=== PATIENT | male | born 1990 | race Caucasian/White ===

== ENCOUNTER 2017-02-09 09:47 | Inpatient (IN) | payer SELFPAY ==
[~2017-02-09] VITALS: Ht 180.3 cm; Wt 71.2 kg
[~2017-02-09 09:47] MED LIST: CIPR500T93 PO; Z.0.NO CURRENT MEDS
[2017-02-09] MEDS ORDERED: IOHEXOL 350 MG/ML 10 ML VIAL (for RAD DIAG) IVCONTRAST ONE (09:48)
[2017-02-09 10:00] VITALS: BP 139/76; PULSE 104; RESP 18; TEMP 98.6; O2SAT 99
[2017-02-09] MEDS ORDERED: HYDROmorphone HCL PF 1 MG/ML VIAL IV PUSH ONE ×2 (10:30→13:30)
[2017-02-09] MEDS ORDERED: SODIUM CHLOR 0.9% 1000 ML INJ 1,000 ML IV ONE (10:30)
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
[2017-02-09 12:41] LABS: AUTOMATED NEUTROPHIL # 6.7 TH/MM3 (1.8-7.7); BASOPHIL # 0.1 TH/MM3 (0-0.2); BASOPHIL % 0.6 % (0.0-2.0); EOSINOPHIL # 0.2 TH/MM3 (0-0.4); EOSINOPHIL % 2.1 % (0.0-4.0); HEMATOCRIT 43.5 % (39.0-51.0); HEMO FLAGS DIFF FINAL; LYMPH % 24.2 % (9.0-44.0); LYMPHOCYTE # 2.7 TH/MM3 (1.0-4.8); MEAN CELL VOLUME 84.5 FL (80.0-100.0); MEAN CORPUSCULAR HEMOGLOBIN 27.5 PG (27.0-34.0); MEAN CORPUSCULAR HGB CONC 32.6 % (32.0-36.0); NEUT % 61.1 % (16.0-70.0); PLATELET COUNT 300 TH/MM3 (150-450); RED BLOOD COUNT 5.15 MIL/MM3 (4.50-5.90)
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
[2017-02-09 12:57] LABS: BICARBONATE 26.8 MEQ/L (21.0-32.0); POTASSIUM 3.7 MEQ/L (3.5-5.1)
[2017-02-09 13:13] VITALS: BP 132/85; PULSE 94; RESP 16; O2SAT 99
[2017-02-09] MEDS ORDERED: NALOXONE HCL 0.4 MG/ML AMP IV PRN (15:00)
[2017-02-09] MEDS ORDERED: HYDROmorphone HCL 2 MG TAB SL PRN (15:00)
[2017-02-09] MEDS ORDERED: Post-op Orders (for Pharmacy) MISC XX ONE (15:00)
[2017-02-09] MEDS ORDERED: ONDANSETRON HCL 4 MG/2 ML VIAL IV PRN (15:00)
[2017-02-09] MEDS ORDERED: SODIUM CHLORIDE 0.9% FLUSH 10 ML FLUSH IV FLUSH PRN (15:00)
[2017-02-09] MEDS: SODIUM CHLOR 0.9% 1000 ML INJ 1,000 ML IV SCH (15:37)
[2017-02-09 16:49] VITALS: BP 136/90; PULSE 88; RESP 14; TEMP 98.6; O2SAT 100
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
[2017-02-09] MEDS: HYDROmorphone HCL PF 1 MG/ML VIAL IV PRN ×2 (18:14→21:23)
[2017-02-09 20:45] VITALS: BP 147/88; PULSE 87; RESP 16; TEMP 97.2; O2SAT 100
[2017-02-10] MEDS: SODIUM CHLORIDE 0.9% FLUSH 10 ML FLUSH IV FLUSH SCH ×2 (00:33→08:32)
[2017-02-10] MEDS: HYDROmorphone HCL PF 1 MG/ML VIAL IV PRN ×4 (00:33→08:00)
[2017-02-10] MEDS: SODIUM CHLOR 0.9% 1000 ML INJ 1,000 ML IV SCH (00:34)
[2017-02-10 00:40] VITALS: BP 142/89; PULSE 94; RESP 16; TEMP 98.9; O2SAT 100
[2017-02-10 04:40] VITALS: BP 144/76; PULSE 87; RESP 16; TEMP 98.6; O2SAT 100
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
[2017-02-10 08:00] VITALS: BP 131/85; PULSE 94; RESP 16; TEMP 98.6; O2SAT 99
[2017-02-10] MEDS ORDERED: LACTULOSE SYRUP 20 GM/30 ML CUP PO PRN (08:00)
[2017-02-10] MEDS: DOCUSATE SODIUM 50 MG/SENNA 8.6 MG TAB PO SCH ×2 (08:32→20:12)
[2017-02-10] MEDS: FAMOTIDINE 20 MG TAB PO SCH ×2 (08:32→20:12)
[2017-02-10] MEDS ORDERED: GENTAMICIN SULFATE 80 MG/2 ML VIAL ONE (10:16)
[2017-02-10] MEDS ORDERED: ceFAZolin INJ 1,000 MG VIAL ONE (10:16)
[2017-02-10] MEDS ORDERED: VANCOMYCIN HCL 1000 MG VIAL ONE (10:17)
[2017-02-10] MEDS ORDERED: FAMOTIDINE 20 MG/2 ML VIAL ONE (11:02)
[2017-02-10] MEDS ORDERED: MIDAZOLAM HCL 2 MG/2 ML VIAL ONE (11:02)
[2017-02-10] MEDS ORDERED: ACETAMINOPHEN 1000 MG/100 ML 100 ML IV ONE (11:02)
[2017-02-10] MEDS ORDERED: HYDROmorphone HCL PF 2 MG/ML VIAL ONE (11:05)
[2017-02-10] MEDS ORDERED: ceFAZolin INJ 1,000 MG VIAL IV ONE (11:38)
[2017-02-10] MEDS ORDERED: BUPIVACAINE/EPINEPHRINE 0.25% 50 ML VIAL ONE (11:47)
--- NOTE | 2017-02-10 11:50 | PD.OP ---
cc: Bart Pimentel MD Operative Report Date of Surgery: Feb 10, 2017 Preoperative Diagnosis: Displaced left hip intertrochanteric fracture Postoperative Diagnosis: Procedure: Left hip reduction and intramedullary nail fixation Anesthesia: Gen. Surgeon: Bart Pimentel Refuse Collector(s): CORRIE Page PA-C The surgical procedure was assisted by my physician executive marketing assistant. My P.A. presence was necessary throughout this case for the manipulation and positioning of the surgical extremity. My P.A. was assisting me throughout the duration of this procedure. The skill set of a physician executive marketing assistant was medically necessary to complete this procedure. During the surgical case the surgical brace maker was working at the back table and the physician executive marketing assistant was directly assisting me. Operation and Findings: Implants used: [11]mm 125 Synthes TFNA short troch nail Plan of activity: Weight-bear as tolerated Patient was seen and evaluated preoperatively. The patient has significant hip pain from intertrochanteric hip fracture. The risk and benefits of surgery were discussed in depth with the patient to include bleeding infection nonunion malunion and need for hip replacement painful hardware as well as medical competitions including but not stroke heart attack and . Informed consent was obtained. Operative site was marked. Patient was brought to the operating room and placed on fracture table. IV sedation was administered by anesthesiologist. Timeout procedure was performed. Hip and leg were prepped with alcohol followed by DuraPrep and draped in the usual sterile fashion. IV antibiotics were given prior to incision. Procedure began with reduction of fracture. Traction was applied. The leg was manipulated to achieve reduction. Excellent reduction was achieved. Fluoroscopy was used to confirm reduction. A three inch incision was made proximal to the trochanter. Subcutaneous tissue was dissected bluntly. Guidepin was placed at the tip of the trochanter and advanced into the femoral canal. Fluoroscopy confirmed appropriate guidepin placement. A opening reamer was placed over the guidepin. The Synthes TFNA nail was attached to the insertion handle. Nail was now placed through the tip of the trochanter into the femoral canal. Fluoroscopy confirmed appropriate nail placement. A second incision was made over the lateral thigh. Cannulas were placed through the insertion handle down to the femur. Guidepin was now placed through the femoral nail into the center of the femoral head. Fluoroscopy confirmed appropriate guidepin placement. Screw length was measured. Cannulated drill was placed over the guidepin. Appropriate length lag screw was now placed. Traction was released and compression was applied. The set screw was now tightened in dynamic mode. Using the insertion handle as a guide a distal interlocking screw was drilled and placed. Final fluoroscopy revealed well aligned fracture with well-placed hardware. Incision was closed with 3-0 Vicryl and flex. Sterile dressings were applied. Patient was awakened and transferred to recovery room. Bart Pimentel MD Feb 10, 2017 11:50
[2017-02-10] MEDS ORDERED: ONDANSETRON HCL 4 MG/2 ML VIAL IV PUSH ONE (12:00)
[2017-02-10] MEDS ORDERED: SODIUM CHLORIDE 0.9% FLUSH 5 ML FLUSH IVF PRN (12:00)
[2017-02-10] MEDS ORDERED: PROPOFOL 200 MG/20 ML AMP IV ONE (12:00)
[2017-02-10] MEDS ORDERED: diphenhydrAMINE HCL 25 MG CAP PO PRN (12:00)
[2017-02-10] MEDS ORDERED: DO NOT ADM ANY ANTICOAGULANT DRUGS PRN (12:07)
--- NOTE | 2017-02-10 12:23 | HHI.PR ---
Subjective Subjective Notes S/P Left hip reduction and intramedullary nail fixation Objective Vitals/I&O Vital Signs Date Time Temp Pulse Resp B/P (MAP) Pulse Ox O2 Delivery O2 Flow Rate FiO2 02/10/17 08:00 98.6 94 16 131/85 (100) 99 02/09/17 16:49 Room Air Narrative Exam GENERAL: 26 year old male lying in bed. SKIN: Warm and dry. NECK: Trachea midline. No JVD. CARDIOVASCULAR: Regular rate and rhythm. RESPIRATORY: No accessory muscle use. Clear to auscultation. Breath sounds equal bilaterally. GASTROINTESTINAL: Abdomen soft, non-tender, nondistended. MUSCULOSKELETAL: Extremities without cyanosis, or edema. MENDEZ. LEFT hip dressing C/D/I. + pulses x4. NEUROLOGICAL: Awake and alert. A/P Assessment and Plan INJURIES: Concussion LEFT femur fx PMHx: Tobacco abuse, marijuana use, TBI 02/10: Left hip reduction and intramedullary nail fixation Diet: Regular Pulm: IS Pain: [place], Morphine IV Activity: OOB. PT ordered (WBAT LLE) GI: Pepcid Bowel: Vanessa-colace, PRN Lactulose. LBM 0 DVT: SCDs, Lovenox 30 BID Concussion Supportive care Neuro checks Avoid second head injury Post-concussive education LEFT femur fx Orthopedics consulted S/P Left hip reduction and intramedullary nail fixation WBAT LLE PT- OOB Pain control Lovenox CM consulted for DC planning. Shelli Rios Feb 10, 2017 12:23
[2017-02-10] MEDS: CALCIUM/VITAMIN D 250 MG/125 U TAB PO SCH ×2 (13:00→18:46)
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
[2017-02-10 14:25] VITALS: BP 129/82; PULSE 75; RESP 18; TEMP 96.2; O2SAT 99
[2017-02-10] MEDS: ACETAMINOPHEN/HYDROcodone 325 MG/10 MG TAB PO PRN ×2 (16:16→20:13)
[2017-02-10 17:02] LABS: AUTOMATED NEUTROPHIL # 14.3 TH/MM3 (1.8-7.7); BASOPHIL % 0.1 % (0.0-2.0); EOSINOPHIL % 0.1 % (0.0-4.0); HEMATOCRIT 41.3 % (39.0-51.0); HEMO FLAGS DIFF FINAL; LYMPHOCYTE # 0.8 TH/MM3 (1.0-4.8); MEAN CELL VOLUME 84.8 FL (80.0-100.0); MEAN CORPUSCULAR HEMOGLOBIN 27.2 PG (27.0-34.0); NEUT % 88.8 % (16.0-70.0); PLATELET COUNT 281 TH/MM3 (150-450); RED BLOOD COUNT 4.87 MIL/MM3 (4.50-5.90); RED CELL DISTRIBUTION WIDTH 14.1 % (11.6-17.2); WHITE BLOOD COUNT 16.1 TH/MM3 (4.0-11.0)
[2017-02-10 17:31] LABS: BICARBONATE 26.7 MEQ/L (21.0-32.0); POTASSIUM 4.1 MEQ/L (3.5-5.1)
[2017-02-10] MEDS: SODIUM CHLORIDE 0.9% FLUSH 5 ML FLUSH IVF SCH (20:14)
[2017-02-10 20:50] VITALS: BP 133/75; PULSE 108; RESP 16; TEMP 98.1; O2SAT 98
[2017-02-10] MEDS ORDERED: SODIUM CHLORID 0.9% 500 ML IV PRN (23:45)
[2017-02-10] MEDS ORDERED: POVIDONE IODINE 5% (ANTISEPSIS KIT) 4 APPLICATIONS EACH NARE PRN (23:45)
[2017-02-10] MEDS ORDERED: CHLORHEXIDINE GLUCONATE 2 % 1 PACK (2 CLOTHS) TOPICAL PRN (23:45)
[2017-02-10] MEDS ORDERED: LACTATED RINGER'S 1000 ML IV PRN (23:45)
[2017-02-10] MEDS ORDERED: INSULIN HUMAN REGULAR 1,000 UNITS/10 ML VIAL SQ PRN (23:45)
[2017-02-10] MEDS: MORPHINE SULFATE 4 MG/ML INJ IV PUSH PRN (23:57)
[2017-02-11] VITALS (8 sets, daily range): BP systolic 123–144; BP diastolic 67–88; PULSE 89–124; RESP 16–20; TEMP 96.8–98.7; O2SAT 98–100
[2017-02-11] MEDS ORDERED: XARE10TA PO (07:01)
[2017-02-11] MEDS ORDERED: HYDR-3583 PO (07:01)
--- NOTE | 2017-02-11 07:53 | PD.ORT.PN ---
Subjective Subjective Remarks POD 1 s/p IMN left intertroch hip fx -doing well. reports pain. resting comfrotably Objective Vitals Vital Signs Date Time Temp Pulse Resp B/P (MAP) Pulse Ox O2 Delivery O2 Flow Rate FiO2 02/11/17 04:50 98.2 100 17 123/75 (91) 99 02/11/17 02:00 Room Air 02/11/17 00:50 97.8 124 16 138/67 (90) 98 02/11/17 00:39 98 02/11/17 00:02 18 02/10/17 21:13 18 02/10/17 20:50 98.1 108 16 133/75 (94) 98 02/10/17 14:25 96.2 75 18 129/82 (98) 99 02/10/17 13:30 78 16 137/67 (90) 98 Room Air 02/10/17 13:00 80 16 132/80 (97) 99 Room Air 02/10/17 12:45 80 16 133/86 (102) 100 02/10/17 12:35 16 100 Nasal Cannula 2 02/10/17 12:30 78 16 130/83 (99) 100 Nasal Cannula 3 02/10/17 12:15 80 16 120/79 (93) 100 Nasal Cannula 3 02/10/17 12:07 98.0 82 16 115/64 (81) 100 Nasal Cannula 3 02/10/17 08:00 98.6 94 16 131/85 (100) 99 I/O 02/10/17 02/10/17 02/10/17 02/11/17 02/11/17 02/11/17 07:00 15:00 23:00 07:00 15:00 23:00 Intake Total 0 ml 1150 ml 580 ml 340 ml Output Total 75 ml 400 ml Balance 0 ml 1075 ml 580 ml -60 ml Intake Oral 0 ml 200 ml 480 ml 240 ml IV Total 100 ml 100 ml Other 950 ml Output Urine Total 400 ml Estimated Blood Loss 75 ml # Voids 2 3 2 # Bowel Movements 0 0 0 0 Result Diagram: 02/10/17 1603 02/10/17 1603 Objective Remarks LLE: dressings clean and dry. intact. NVI Assessment & Plan Assessment and Plan 1) Left Intertroch Hip fx s/p IMN - POD 1 -WBAT -work with PT -DVt prophylaxis -pain control -scripts on chart -ortho cleared for DC -f/u with Jacinto or Emigdio in 2 weeks Sai Cunningham Feb 11, 2017 07:53
[2017-02-11] MEDS ORDERED: WALKER/ADULT/FO1 MIS (07:54)
[2017-02-11 08:18] LABS: AUTOMATED NEUTROPHIL # 10.4 TH/MM3 (1.8-7.7); BASOPHIL # 0.1 TH/MM3 (0-0.2); BASOPHIL % 0.3 % (0.0-2.0); EOSINOPHIL # 0.1 TH/MM3 (0-0.4); EOSINOPHIL % 0.9 % (0.0-4.0); HEMATOCRIT 37.2 % (39.0-51.0); HEMO FLAGS DIFF FINAL; LYMPH % 16.3 % (9.0-44.0); LYMPHOCYTE # 2.4 TH/MM3 (1.0-4.8); MEAN CELL VOLUME 83.6 FL (80.0-100.0); MEAN CORPUSCULAR HGB CONC 33.5 % (32.0-36.0); MONO % 12.6 % (0.0-8.0); NEUT % 69.9 % (16.0-70.0); PLATELET COUNT 248 TH/MM3 (150-450); RED BLOOD COUNT 4.45 MIL/MM3 (4.50-5.90); RED CELL DISTRIBUTION WIDTH 13.6 % (11.6-17.2); WHITE BLOOD COUNT 14.8 TH/MM3 (4.0-11.0)
[2017-02-11 08:37] LABS: BICARBONATE 29.2 MEQ/L (21.0-32.0); POTASSIUM 3.7 MEQ/L (3.5-5.1)
[2017-02-11] MEDS: SODIUM CHLORIDE 0.9% FLUSH 5 ML FLUSH IVF SCH ×2 (09:00→20:52)
[2017-02-11] MEDS: ACETAMINOPHEN/HYDROcodone 325 MG/10 MG TAB PO PRN (09:38)
[2017-02-11] MEDS: DOCUSATE SODIUM 50 MG/SENNA 8.6 MG TAB PO SCH ×2 (09:38→20:38)
[2017-02-11] MEDS: FAMOTIDINE 20 MG TAB PO SCH ×2 (09:38→20:39)
[2017-02-11] MEDS: CALCIUM/VITAMIN D 250 MG/125 U TAB PO SCH ×3 (09:38→16:27)
[2017-02-11] MEDS: CHOLECALCIFEROL (VIT D3) 5000 UNIT CAP PO SCH (09:38)
[2017-02-11] MEDS ORDERED: CRUTMIS25 (10:26)
[2017-02-11] MEDS: ENOXAPARIN SODIUM 30 MG/0.3 ML SYRINGE SQ SCH ×2 (11:50→12:30)
--- NOTE | 2017-02-11 11:58 | HHI.PR ---
Subjective Subjective Notes Pain uncontrolled, patient reports he fell asleep and hadn't taken any pain meds since last night Complains of left leg pain and back pain Objective Vitals/I&O Vital Signs Date Time Temp Pulse Resp B/P (MAP) Pulse Ox O2 Delivery O2 Flow Rate FiO2 02/11/17 07:45 98.7 107 18 126/88 (101) 98 02/11/17 02:00 Room Air 02/10/17 12:35 2 Labs Laboratory Tests Test 02/10/17 16:03 02/11/17 07:41 White Blood Count 16.1 14.8 Red Blood Count 4.87 4.45 Hemoglobin 13.2 12.5 Hematocrit 41.3 37.2 Mean Corpuscular Volume 84.8 83.6 Mean Corpuscular Hemoglobin 27.2 28.0 Mean Corpuscular Hemoglobin Concent 32.0 33.5 Red Cell Distribution Width 14.1 13.6 Platelet Count 281 248 Mean Platelet Volume 8.5 8.7 Neutrophils (%) (Auto) 88.8 69.9 Lymphocytes (%) (Auto) 5.0 16.3 Monocytes (%) (Auto) 6.0 12.6 Eosinophils (%) (Auto) 0.1 0.9 Basophils (%) (Auto) 0.1 0.3 Neutrophils # (Auto) 14.3 10.4 Lymphocytes # (Auto) 0.8 2.4 Monocytes # (Auto) 1.0 1.9 Eosinophils # (Auto) 0.0 0.1 Basophils # (Auto) 0.0 0.1 CBC Comment DIFF FINAL DIFF FINAL Differential Comment Blood Urea Nitrogen 4 8 Creatinine 0.78 0.74 Random Glucose 102 121 Calcium Level 8.3 8.1 Sodium Level 135 137 Potassium Level 4.1 3.7 Chloride Level 100 101 Carbon Dioxide Level 26.7 29.2 Anion Gap 8 7 Estimat Glomerular Filtration Rate 121 129 Radiology Last Impressions Hip X-Ray 02/10/17 0000 Signed Impressions: Service Date/Time: January 11:46 - CONCLUSION: Status post open rigid internal fixation. multiple cone down views of the left hip were obtained Beto Amaya MD Head CT 02/09/17 Signed Impressions: Service Date/Time: Thursday, February 09, 2017 10:58 - CONCLUSION: Intracranial contents are negative. Ra Roque MD FACR Femur X-Ray 02/09/17 Signed Impressions: Service Date/Time: Thursday, February 09, 2017 10:30 - CONCLUSION: Intertrochanteric fracture. Ra Roque MD FACR Chest CT 02/09/17 Signed Impressions: Service Date/Time: Thursday, February 09, 2017 11:05 - CONCLUSION: Normal examination. Venkatesh Hernandez Jr., MD Cervical Spine CT 02/09/17 Signed Impressions: Service Date/Time: Thursday, February 09, 2017 10:58 - CONCLUSION: No acute bony injury in the cervical spine. Torsten Hinojosa MD Abdomen/Pelvis CT 02/09/17 Signed Impressions: Service Date/Time: Thursday, February 09, 2017 11:05 - CONCLUSION: Intertrochanteric fracture left hip with intact pelvis. Otherwise negative. Ra Roque MD FACR Narrative Exam GENERAL: 26 year old well-nourished, well-developed male lying in bed in mild distress. SKIN: Warm and dry. Multiple tattoos noted. HEAD: Normocephalic. ENT: No nasal bleeding or discharge. Mucous membranes pink and moist. NECK: Trachea midline. No JVD. CARDIOVASCULAR: Regular rate and rhythm. RESPIRATORY: No accessory muscle use. Lungs clear to auscultation. Breath sounds equal bilaterally. GASTROINTESTINAL: Abdomen soft, non-tender, nondistended. + BS. MUSCULOSKELETAL: Extremities without cyanosis, or edema. LLE with primapore dressing in place. MAEW, + pulses x4. NEUROLOGICAL: Awake and alert. Normal speech. A/P Assessment and Plan INJURIES: Concussion LEFT femur fx PMHx: Tobacco abuse, marijuana use, TBI 02/10: Left hip reduction and intramedullary nail fixation Diet: Regular Pulm: IS Pain: Morphine IV. [place] DC'd and patient placed on Roxicodone 5-10mg q3H PRN. Activity: OOB. PT ordered (WBAT LLE) GI: Pepcid Bowel: Vanessa-colace, PRN Lactulose. LBM 0 DVT: SCDs, Lovenox 30 BID Concussion Supportive care Neuro checks Avoid second head injury Post-concussive education LEFT femur fx Orthopedics consulted and cleared for DC S/P Left hip reduction and intramedullary nail fixation WBAT LLE PT- OOB Pain control Lovenox CM consulted for DC planning. Plan to DC in AM when pain better controlled. Attending Statement The exam, history, and the medical decision-making described in the above note were completed with the assistance of the mid-level provider. I reviewed and agree with the findings presented. I attest that I had a [id number] encounter with the patient on the same day, and personally performed and documented my assessment and findings in the medical record. Shelli Rios Feb 11, 2017 11:58 Raj Peters MD Feb 14, 2017 11:30
[2017-02-11] MEDS: METHOCARBAMOL 500 MG TAB PO SCH ×2 (12:30→22:30)
[2017-02-11] MEDS ORDERED: RIVAROXABAN 10 MG TAB PO ONE (17:00)
[2017-02-11] MEDS: MORPHINE SULFATE 4 MG/ML INJ IV PUSH PRN (23:47)
[2017-02-12] VITALS: BP 117/73; PULSE 88; RESP 20; TEMP 97.8; O2SAT 100
[2017-02-12 04:00] VITALS: BP 117/69; PULSE 93; RESP 20; TEMP 97.6; O2SAT 98
[2017-02-12] MEDS: METHOCARBAMOL 500 MG TAB PO SCH ×2 (06:02→12:45)
--- NOTE | 2017-02-12 07:09 | PD.ORT.PN ---
Subjective Subjective Remarks POD 2 s/p IMN left intertroch hip fx -doing well. reports pain improving. was able to get out of bed and put weight on leg yesterday Objective Vitals Vital Signs Date Time Temp Pulse Resp B/P (MAP) Pulse Ox O2 Delivery O2 Flow Rate FiO2 02/12/17 04:00 97.6 93 20 117/69 (85) 98 02/12/17 03:37 17 02/12/17 00:02 18 02/12/17 00:00 97.8 88 20 117/73 (88) 100 02/11/17 20:00 96.8 102 20 136/69 (91) 99 02/11/17 16:00 97.3 113 19 144/80 (101) 100 02/11/17 13:05 98 02/11/17 11:34 98.2 89 18 132/80 (97) 98 02/11/17 07:45 98.7 107 18 126/88 (101) 98 I/O 02/11/17 02/11/17 02/11/17 02/12/17 02/12/17 02/12/17 07:00 15:00 23:00 07:00 15:00 23:00 Intake Total 340 ml 960 ml 800 ml 800 ml Output Total 400 ml 600 ml 650 ml Balance -60 ml 960 ml 200 ml 150 ml Intake Oral 240 ml 960 ml 800 ml 800 ml IV Total 100 ml Output Urine Total 400 ml 600 ml 650 ml # Voids 3 # Bowel Movements 0 0 Result Diagram: 02/11/17 0741 02/11/17 0741 Objective Remarks LLE: dressings clean and dry. intact. NVI Assessment & Plan Assessment and Plan 1) Left Intertroch Hip fx s/p IMN - POD 2 -WBAT -work with PT -DVt prophylaxis -pain control -scripts on chart -ortho cleared for DC -f/u with Jacinto or Emigdio in 2 weeks Sai Cunningham Feb 12, 2017 07:09
[2017-02-12 07:40] VITALS: BP 128/77; PULSE 112; RESP 16; TEMP 98.2; O2SAT 100
[2017-02-12] MEDS: DOCUSATE SODIUM 50 MG/SENNA 8.6 MG TAB PO SCH (08:08)
[2017-02-12] MEDS: CHOLECALCIFEROL (VIT D3) 5000 UNIT CAP PO SCH (08:08)
[2017-02-12] MEDS: CALCIUM/VITAMIN D 250 MG/125 U TAB PO SCH ×2 (08:08→12:45)
[2017-02-12] MEDS: FAMOTIDINE 20 MG TAB PO SCH (08:08)
[2017-02-12] MEDS: SODIUM CHLORIDE 0.9% FLUSH 5 ML FLUSH IVF SCH (08:09)
[2017-02-12] MEDS ORDERED: XARE20TA PO (08:28)
[2017-02-12] MEDS ORDERED: RIVAROXABAN 10 MG TAB PO SCH (09:00)
[2017-02-12 09:10] LABS: HEMATOCRIT 38.1 % (39.0-51.0); REVIEW FLAG FINAL
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
[2017-02-12 11:22] VITALS: BP 123/75; PULSE 95; RESP 16; TEMP 99; O2SAT 98
== END 2017-02-12 16:32 | disposition home or self-care (01) | DRG 482 ==
LOC: NEPC 09:47 → NEDA 12:40 → N06B 17:12
PROVIDERS: ADMIT Surgery; ATTEND Surgery
PROC: 0QS706Z Reposition Left Upper Femur with Intramedullary Internal Fixation Device, Open Approach (ICD-10-PCS; principal; 2017-02-09)
DX: S72.142A Displaced intertrochanteric fracture of left femur, initial encounter for closed fracture (principal); S06.0X0A Concussion without loss of consciousness, initial encounter; F17.200 Nicotine dependence, unspecified, uncomplicated; F12.90 Cannabis use, unspecified, uncomplicated; V00.148A Other scooter (nonmotorized) accident, initial encounter; Y92.9 Unspecified place or not applicable
CPT/HCPCS: 70450; 71260; 72125; 73502; 73552; 74177; 76000; 80048; 85014; 85018; 85025; 86850; 86900; 86901; 94150; 96361; 96374; C1713; J0131; J0690; J1170; J1580; J1650; J2250; J2270; J2405; J3010; J3370; J7030; Q9967